=== PATIENT | female | born 1985 | race Caucasian/White ===

== ENCOUNTER 2017-12-05 19:30 | Emergency (ER) | payer OTHER ==
[~2017-12-05] VITALS: Ht 154.9 cm; Wt 55.3 kg
[2017-12-05 19:35] VITALS: BP 134/84
--- NOTE | 2017-12-05 20:44 | ULTRASOUND REPORT ---
EXAMINATION: US TRIPLEX LOWER EXTREMITY, LEFT CLINICAL INFORMATION: Pain. Leg tenderness. COMPARISON: None TECHNIQUE: Color-flow triplex imaging with spectral analysis and compression Doppler were performed on the lower extremity. FINDINGS: Respiratory variation, normal compression and augmented flow are noted throughout the lower extremity. The visualized common femoral vein, superficial femoral vein, profunda femoral vein, popliteal vein and midcalf peroneal and posterior tibial venous segments show no evidence of deep venous thrombosis. There is no Flores's cyst. IMPRESSION: No evidence of deep venous thrombosis involving the left lower extremity.
--- NOTE | 2017-12-05 20:58 | ED UPPER/LOWER EXTREMITY COMPL ---
History of Present Illness General Chief Complaint: General Adult Stated Complaint: "CAT SCAN ON LT LEG" Source: patient Exam Limitations: no limitations Vital Signs & Intake/Output Vital Signs & Intake/Output Vital Signs Date Time Temp Pulse Resp B/P B/P Pulse O2 O2 Flow FiO2 Mean Ox Delivery Rate 12/05 1934 97.1 85 18 134/84 97 Room Air Room Air Allergies Coded Allergies: ciprofloxacin (From CIPRO) (HIVES 12/05/17) phenazopyridine (From PYRIDIUM) (HIVES 12/05/17) Reconcile Medications Ibuprofen 600 MG TABLET 1 TAB PO TID PRN PAIN with food Triage Note: TRIAGE 32 Y/O FEMALE PRESENTS FOR ULTRASOUND TO LEFT LEG TO RULE OUT BLOOD CLOT. SENT BY URGENT CARE FOR LLE SWELLING. REPORTS PAIN 6-02/25. PAIN WORSE WHEN SITTING. Triage Nurses Notes Reviewed? yes Onset: Gradual Duration: day(s): Timing: recent history Severity: mild Pain/Injury Location: Left: Leg. Method of Injury: unknown Modifying Factors: Improves With: rest. Associated Symptoms: swelling, pain : No Patient currently breastfeeds: No HPI: 32 yo woman, h/o thrombophlebitis, presents with left medial calf discomfort for the past 1-2 days. "I was at urgent care and they sent me up to make sure it wasn't a blood clot." She notes mild swelling and discomfort, without erythema. She notes, "it seems to be looking better now." She notes that during the day "I sit all day," and denies trauma. She is otherwise well. Past History Travel History Traveled to [place] past 21 day No Medical History Any Pertinent Medical History? see below for history Neurological: NONE EENT: NONE Cardiovascular: NONE Respiratory: NONE Gastrointestinal: NONE Hepatic: NONE Renal: NONE Musculoskeletal: NONE Psychiatric: bipolar disease Endocrine: NONE Blood Disorders: NONE Surgical History Surgical History: none Psychosocial History What is your primary language [place] Tobacco Use: Current Not Daily ETOH Use: occasional use Illicit Drug Use: denies illicit drug use Family History Hx Contributory? No Review of Systems Review of Systems Constitutional: Reports: no symptoms. EENTM: Reports: no symptoms. Respiratory: Reports: no symptoms. Cardiovascular: Reports: no symptoms. Gastrointestinal/Abdominal: Reports: no symptoms. Genitourinary: Reports: no symptoms. Musculoskeletal: Reports: no symptoms. Skin: Reports: no symptoms. Neurological/Psychological: Reports: no symptoms. Hematologic/Endocrine: Reports: no symptoms. Immunological: Reports: no symptoms. All Other Systems: Reviewed and Negative Physical Exam Physical Exam General Appearance: well developed/nourished, mild distress Head: atraumatic Eyes: Bilateral: normal appearance. Ears, Nose, Throat: normal pharynx, normal ENT inspection, hearing grossly normal Neck: normal inspection, supple Cardiovascular/Respiratory: regular rate/rhythm Back: normal inspection Leg Left: mild varicose veins on left medial calf area with mild tenderness and minimal, non pitting edema. Skin: intact, normal color, warm/dry Lymphatic: no anterior cervical miguelito Progress Differential Diagnosis: dvt vs phlebitis vs other. Plan of Care: Current Medications Sig/Mauro Start time Last Medication Dose Stop Time Status Admin Ibuprofen 600 MG ONCE ONE 12/05 2114 UNVr (Motrin) 12/06 2115 Diagnostic Imaging: Viewed by Me: Ultrasound. Discussed w/RAD: Ultrasound. Radiology Impression: PATIENT: LORIE ENGEL PRESENT AGE: 32 PATIENT ACCOUNT NO: [id number] : 87 LOCATION: [facility] ORDERING PHYSICIAN: Mehul DEL ANGEL SERVICE DATE: 12/05/17 EXAM TYPE: US - US-DUPLEX VENOUS EXTREM UNI EXAMINATION: US TRIPLEX LOWER EXTREMITY, LEFT CLINICAL INFORMATION: Pain. Leg tenderness. COMPARISON: None TECHNIQUE: Color- flow triplex imaging with spectral analysis and compression Doppler were performed on the lower extremity. FINDINGS: Respiratory variation, normal compression and augmented flow are noted throughout the lower extremity. The visualized common femoral vein, superficial femoral vein, profunda femoral vein, popliteal vein and midcalf peroneal and posterior tibial venous segments show no evidence of deep venous thrombosis. There is no Flores's cyst. IMPRESSION: No evidence of deep venous thrombosis involving the left lower extremity. DICTATED BY: Diego Vazquez MD DATE/TIME DICTATED:12/05/172039 PUNCHER: MASHA DATE/TIME TRANSCRIBED:12/05/172039 CONFIDENTIAL, DO NOT COPY WITHOUT APPROPRIATE AUTHORIZATION. <Electronically signed in Other Vendor System> SIGNED BY: Diego Vazquez MD 12/05/172043 Departure Departure Disposition: HOME OR SELF CARE Condition: Stable Clinical Impression Primary Impression: Phlebitis Referrals: Patient Has No Primary Care Dr (PCP/Family) Departure Forms: Customer Survey General Discharge Information Prescriptions: Current Visit Scripts Ibuprofen 1 TAB PO TID PRN PAIN #30 TAB with food Comments discussed compression, nsaids, close follow up advised.
[2017-12-05] MEDS ORDERED: IBUPROFEN600 M1 PO (21:02)
== END 2017-12-05 21:23 ==
LOC: ERH 19:30
DX: I80.9 Phlebitis and thrombophlebitis of unspecified site (principal)